=== PATIENT | male | born 1935 | race Caucasian/White ===

== ENCOUNTER → 2017-05-22 | Outpatient (CLI) | payer MEDICARE ==
[2016-03-31 11:11] VITALS: BMI 33.8
[~2017-05-22] MED LIST: ACET500T68 PO; AML5 PO; AMLO-1 PO; AMLO-98 PO; AMLO-99 PO; AMOX-559 PO; AMOX500T10 PO; ASCO1TAB PO; ASPI-719 PO; ASPI-816 PO; AZIT-1 PO; AZIT-18 PO; BP MED; CEF300 PO; CELE-1 PO; CELE100C79 PO; CIPR-245 PO; CIPR-344 PO; CLAR-13 PO; CLON-327 PO; CODE118S5 PO; DEXL60CA6 PO; ENA10 PO; ENAL20TA99 PO; FESO8PT PO; FIN5 PO; FINA5TAB67 PO; FLUT16SP19 NS; FURO-45 PO; GAB300; GAB300 PO; GABA-549 PO; HYDR-2966 PO; HYDR-3629 PO; HYDR-385 PO; HYDR-4308 PO; HYDR-6016 PO; INSU100C12 SQ; INSU100C14 SQ; INSU100I35 SQ; INSU100V24 SQ; INSU200I SUBQ; LANI SQ; LANI SUBQ; LIDO10VI16 INTRA-ART; LISI-362 PO; LISI-368 PO; LISI-374 PO; LISI20TA29 PO; LOR5 PO; LOR5/325 PO; Levofloxacin PO; MAGN400C PO; MECL12.5 PO; MELO-149 PO; METF-410 PO; METF500T4 PO; METXR500; MIRA50TA PO; MULT1CAP59 PO; NEED-653 SQ; NEOM10DR44 OT; OMEP-125 PO; PNEU0.5D3 IM; PRED-1 PO; PREG50CA48 PO; ROS10 PO; SIMV-44 PO; SIMV-49 PO; SOLI10TA8 PO; SPIR25TA78 PO; TAMS0.4C69 PO; TAMS0.4C70 PO; TRI40I IART; VIT C; [UNRECOGNIZED DRUG - CODE] PO; [UNRECOGNIZED DRUG - CODE] PO
== END ==
LOC: LAB 14:54
PROVIDERS: ATTEND Emergency Medicine
DX: E11.9 Type 2 diabetes mellitus without complications (principal)
CPT/HCPCS: 36415; 82310; 82374; 82435; 82565; 82947; 83036; 84132; 84295; 84520

== ENCOUNTER → 2017-06-06 | Outpatient (CLI) | payer MEDICARE ==
[2016-03-31 11:11] VITALS: BMI 33.8
--- NOTE | 2017-06-07 08:53 | RADIOLOGY IMAGING REPORT ---
FACILITY: [facility] - [place] PATIENT NAME: CLAUDIA HO : [id number] MR: [id number] V: [id number] EXAM DATE: ORDERING PHYSICIAN: HUANG KELLEY TECHNOLOGIST: Thuy Mendoza EXAMINATION:TWO-DIMENSIONAL ECHOCARDIOGRAPH REASON:AORTIC STENOSIS 2D Measurements (normal values in centimeters) LV endLV endRV endVent.LV PostAorticLeftPercent DiastolicSystolicDiastolicSeptumWallRootAtriumShortening (3.5-5.7)(0.9-2.6)(0.6-1.1)(0.6-1.1)(2.0-3.7)(1.9-4.0)(25-35%) [id number]% STROKE VOLUME: 39ml ESTIMATED EJECTION FRACTION:64% PARASTERNAL LONG AXIS: Overall left ventricular systolic function appears to be normal. There is mild concentric left ventricular thickening but no evidence for any outflow tract obstruction. The aortic valve appears to be stenotic. Color examination of the aortic valve reveals some aortic insufficiency. The left atrium appears to be severely enlarged. Right ventricle is mildly enlarged. Color examination of the mitral valve revealed a trace of mitral insufficiency present. PARASTERNAL SHORT AXIS: Aortic valve is not well seen but it is stenotic. There is some aortic insufficiency present. It probably is trileaflet in configuration although it is difficult to tell. The overall left ventricular function appears to be normal. No specific wall motion abnormalities are noted. Right ventricle appears to contract normally. APICAL FOUR AND TWO CHAMBER: Normal left ventricular ejection fraction. Left atrium is severely enlarged. The aortic valve was measured at 1.4cm2 with a mean pressure gradient across the valve of 26mm Hg & a dimensionless index of .4 indicating moderate aortic stenosis. Mitral valve area is measured within normal ranges at 2.65cm2. The tricuspid regurgitation Vmax measured 2.78m/sec. Estimated right atrial pressure is 3mm Hg. The left atrial volume is severely increased at 46.7ml/m2. Right atrial volume is measured within normal ranges at 7.9ml/m2. Mild concentric left ventricular thickening is noted with no evidence for any outflow tract obstruction. SUBCOSTAL VIEW: No pericardial effusion was noted. No atrioseptal or ventriculoseptal defects were appreciated. Doppler examination of the mitral valve in diastole does reveal the A wave > E wave. The aortic insufficiency pressure at half time is 521msec. OVERALL IMPRESSION: 1. Normal left ventricular ejection fraction of 64% with a mild decrease in diastolic function. 2. Borderline right ventricular enlargement, concentric left ventricular thickening with no evidence for any outflow tract obstruction. Left atrium is severely enlarged. The other chamber sizes are normal. 3. A probable trileaflet aortic valve with mild to moderate aortic stenosis with a valve area of 1.4cm2 with a mean pressure gradient across the valve of 26mm Hg. There is a mild to borderline moderate amount of aortic insufficiency. 4. A trace of pulmonic insufficiency, trace of mitral & a trace of tricuspid insufficiency. Estimated right ventricular systolic pressure is within normal ranges at 34mm Hg. Mild mitral annular calcification is also noted but no mitral stenosis is noted. Dictated by: Airam Fernandez M.D. on 06/06/2017 at 17:43 Transcribed by: PADDY on 06/07/2017 at 8:06 Approved by: Airam Fernandez M.D. on 06/07/2017 at 8:52 [facility]
== END ==
LOC: US 05-30 02:20
PROVIDERS: ATTEND Emergency Medicine
DX: I50.30 Unspecified diastolic (congestive) heart failure (principal); I51.7 Cardiomegaly; I35.2 Nonrheumatic aortic (valve) stenosis with insufficiency; I34.0 Nonrheumatic mitral (valve) insufficiency; I37.1 Nonrheumatic pulmonary valve insufficiency; I07.1 Rheumatic tricuspid insufficiency; I25.10 Atherosclerotic heart disease of native coronary artery without angina pectoris
CPT/HCPCS: 93306

== ENCOUNTER → 2017-11-17 | Outpatient (CLI) | payer MEDICARE ==
[2016-03-31 11:11] VITALS: BMI 33.8
[~2017-11-17] MED LIST changes: -ASPI-816 PO; +ASPI-870 PO; -METF-410 PO; +METF-411 PO; +OMEG-11 PO; +SPIR25TA80 PO
[2017-11-17 09:09] LABS: PLATELET COUNT, AUTOMATED 182 K/uL (150-450)
[2017-11-17 09:46] LABS: LDL CHOLESTEROL 28 mg/dl
== END ==
LOC: LAB 08:47
PROVIDERS: ATTEND Emergency Medicine
DX: Z12.5 Encounter for screening for malignant neoplasm of prostate (principal); E11.9 Type 2 diabetes mellitus without complications
CPT/HCPCS: 36415; 82040; 82247; 82310; 82374; 82435; 82465; 82565; 82947; 83036; 83718; 84075; 84132; 84153; 84155; 84295; 84450; 84460; 84478; 84520; 85025

== ENCOUNTER → 2017-12-26 | Outpatient (CLI) | payer MEDICARE ==
[2016-03-31 11:11] VITALS: BMI 33.8
[~2017-12-26] MED LIST changes: +AMLO-113 PO; -AMLO-99 PO; -METF-411 PO; +METF-450 PO; +VARI50KI IM
== END ==
LOC: LAB 10:00
PROVIDERS: ATTEND Urology
DX: Z12.5 Encounter for screening for malignant neoplasm of prostate (principal)
CPT/HCPCS: 36415; G0103; 84153

== ENCOUNTER 2018-05-11 14:27 | Emergency (ER) | payer MEDICARE ==
[2016-03-31 11:11] VITALS: Wt 90.7 kg
[~2018-05-11 14:27] MED LIST changes: -AMLO-113 PO; +AMLO-127 PO; -HYDR-4308 PO; +HYDR-654 PO; +SYRI-1525 MC
--- NOTE | 2018-05-11 14:34 | ER Report ---
History and Physical Time Seen By MD: 14:30 HPI/ROS CHIEF COMPLAINT: Possible left lower leg infection HISTORY OF PRESENT ILLNESS: Patient is an 83-year-old male who has a history of diabetes who presents emergency Department with concern about lower extremity infection. Approximately one week ago he was carrying a piece of thyroid in his garage and it slipped striking him in the leg and causing an abrasion. He had been treating himself at home with topical antibiotics and doing well, however today he noticed increasing redness streaking away from the wound. He denies any fevers or chills. Sugars have been fairly well-controlled last blood sugar reported as 124 mg/dL. Patient is unclear when last tetanus shot was given. Reports no other symptoms. REVIEW OF SYSTEMS: Respiratory: No cough, no dyspnea. Cardiovascular: No chest pain, no palpitations. Gastrointestinal: No vomiting, no abdominal pain. Musculoskeletal: No back pain. Allergies: Coded Allergies: shellfish derived (Verified Allergy, Severe, AIRWAY OBSTRUCTION, 05/11/18) tramadol (Verified Allergy, Mild, 05/11/18) Home Meds Active Scripts Cephalexin (KEFLEX) 500 Mg Capsule, 500 MG PO Q6H, #20 CAP 0 Refills TAKE ONE CAPSULE BY MOUTH EVERY SIX HOURS Prov:CATALINO BLOUNT MD 05/11/18 Hydrocodone Bit/Acetaminophen (NORCO 7.5-325 TABLET) 1 Each Tablet, 1 EACH PO TID, #90 TAB 0 Refills Prov:NICOL DAVIS DNP, CUT OFF SAW TENDER METAL-BC 04/30/18 Rosuvastatin Calcium (CRESTOR) 10 Mg Tab, 0.5 TAB PO QDAY, #45 TAB 3 Refills Prov:HUANG KELLEY MD 03/30/18 Amlodipine Besylate (AMLODIPINE BESYLATE) 10 Mg Tablet, 1 TAB PO QDAY, #90 TAB 3 Refills Prov:HUANG KELLEY MD 02/19/18 [place], Insulin Disposable (Bd Ultra-Fine Pen Needle) 1 Each Dis.needle, BOX SQ TID, #3 4 Refills Prov:HUNAG KELLEY MD 02/14/18 Syringe & Needle,Insulin,1 Ml (INSULIN SYRINGE) 1 Each Disp.syrin, EACH MC DAILY, #3 Prov:HUANG KELLEY MD 01/19/18 Clonidine Hcl (CLONIDINE HCL) 0.1 Mg Tablet, 0.1 MG PO BID, #180 TAB 3 Refills Prov:HUANG KELLEY MD 01/19/18 Dexlansoprazole (DEXILANT) 60 Mg , 1 MG PO QDAY, #90 CAP 3 Refills Prov:HUANG KELLEY MD 01/19/18 Metformin Hcl (METFORMIN HCL) 500 Mg Tablet, 1 TAB PO HS, #90 TAB 3 Refills TAKE ONE TABLET BY MOUTH ONCE A DAY WITH FOOD Prov:HUANG KELLEY MD 01/05/18 Pregabalin (LYRICA) 50 Mg Capsule, 50 MG PO DAILY, #90 CAPSULE 3 Refills Prov:HUANG KELLEY MD 01/04/18 Insulin Glargine (LANTUS) 100 Unit/Ml Soln, 25 UNIT SUBQ HS, #3 VIAL 3 Refills Prov:HUANG KELLEY MD 11/20/17 Insulin Lispro 200 UN/ML PEN (Humalog Kwikpen) 200 Unit/1 Ml Insuln.pen, 6 UNITS SUBQ TID, #3 DIS.SYR 4 Refills Take 6 units subcutaneously three times a day. Prov:HUANG KELLEY MD 08/24/17 Lisinopril (LISINOPRIL) 40 Mg Tablet, 1 TAB PO QDAY, #90 TAB 4 Refills Prov:HUANG KELLEY MD 07/28/17 Hydrochlorothiazide (HYDROCHLOROTHIAZIDE) 25 Mg Tablet, 1 TAB PO QDAY, #90 TAB 4 Refills Prov:HUANG KELLEY MD 05/22/17 Fluticasone Prop 50 Mcg Ns (FLONASE 50 MCG NS) 16 Gm [place].susp, 1 SPRAY NS BID, #1 CON 12 Refills Prov:HUANG KELLEY MD 09/07/16 Meclizine Hcl (MECLIZINE HCL) 12.5 Mg Tablet, 12.5 MG PO TID PRN for DIZZINESS, #45 TAB Prov:HUANG KELLEY MD 10/20/15 Finasteride (FINASTERIDE) 5 Mg Tablet, 5 MG PO QDAY, #90 TAB 3 Refills Prov:HUANG KELLEY MD 04/29/15 Tamsulosin Hcl (TAMSULOSIN HCL) 0.4 Mg Cap.er.24h, 1 CAP PO DAILY, #90 CAP 3 Refills Prov:CHIDI SCOTT MD 01/31/14 Aspirin (Children's Aspirin) 81 Mg Tab.chew, 1 TAB PO DAILY, #100 4 Refills Prov:CHIDI SCOTT MD 11/19/13 Reported Medications [place]-3 Fatty Acids/Fish Oil (FISH OIL 1,000 MG CAPSULE) 1 Each Capsule, 1 EACH PO DAILY, CAPSULE 11/20/17 Solifenacin Succinate (VESICARE) 10 Mg Tablet, 1 TAB PO DAILY 09/19/16 Mirabegron (MYRBETRIQ) 50 Mg Tab.er.24h, 1 TAB PO DAILY 09/19/16 Multivitamins (Multivitamin) 1 Each Capsule, 1 EACH PO DAILY 07/22/11 Past Medical/Surgical History Insulin-dependent type II diabetes, hypertension Hx Smoking: No Smoking Status: Never Smoker Exposure to Second Hand Smoke?: No Hx Substance Use Disorder: No Hx Alcohol Use: Yes Constitutional Vital Sign - Last 24 Hours 05/11/18 14:30 Temp 96.7 Pulse 86 Resp 16 B/P (MAP) 172/90 Pulse Ox 90 O2 Delivery Room Air Physical Exam General appearance: Alert no distress. Respiratory: Chest is non tender, lungs are clear to auscultation. Cardiac: Regular rate and rhythm [ ] Examination of the left lower extremity reveals a quarter-sized area of abrasion with some granulation tissue and then an area of edema that extends approximately 10-15 cm above the initial abrasion site. There is no area of fluctuance or area of abscess. Medical Decision Making Data Points Result Diagram: 05/11/18 1440 05/11/18 1440 Laboratory Hematology Test 05/11/18 14:40 Red Blood Count 5.13 M/uL (4.00-5.60) Mean Corpuscular Volume 88.1 fL (80.0-96.0) Mean Corpuscular Hemoglobin 29.9 pg (26.0-33.0) Mean Corpuscular Hemoglobin Concent 33.9 g/dL (32.0-36.0) Red Cell Distribution Width 13.9 % (11.5-14.5) Mean Platelet Volume 9.0 fL (7.2-11.1) Neutrophils (%) (Auto) 61.8 % (39.4-72.5) Lymphocytes (%) (Auto) 27.4 % (17.6-49.6) Monocytes (%) (Auto) 5.0 % (4.1-12.4) Eosinophils (%) (Auto) 5.2 % (0.4-6.7) Basophils (%) (Auto) 0.6 % (0.3-1.4) Nucleated RBC Relative Count (auto) 0.1 /100WBC Neutrophils # (Auto) 6.5 K/uL (2.0-7.4) Lymphocytes # (Auto) 2.9 K/uL (1.3-3.6) Monocytes # (Auto) 0.5 K/uL (0.3-1.0) Eosinophils # (Auto) 0.5 K/uL (0.0-0.5) Basophils # (Auto) 0.1 K/uL (0.0-0.1) Nucleated RBC Absolute Count (auto) 0.01 K/uL Sodium Level 137 mmol/L (137-145) Potassium Level 3.5 mmol/L (3.5-5.0) Chloride Level 104 mmol/L (98-107) Carbon Dioxide Level 29 mmol/L (22-30) Blood Urea Nitrogen 15 mg/dl (9-21) Creatinine 0.70 mg/dl (0.66-1.25) Glomerular Filtration Rate Calc > 60.0 Random Glucose 195 mg/dl (75-110) Calcium Level 9.0 mg/dl (8.4-10.2) Chemistry Test 05/11/18 14:40 White Blood Count 10.5 k/uL (4.5-11.0) Red Blood Count 5.13 M/uL (4.00-5.60) Hemoglobin 15.3 g/dL (14.0-18.0) Hematocrit 45.2 % (42.0-52.0) Mean Corpuscular Volume 88.1 fL (80.0-96.0) Mean Corpuscular Hemoglobin 29.9 pg (26.0-33.0) Mean Corpuscular Hemoglobin Concent 33.9 g/dL (32.0-36.0) Red Cell Distribution Width 13.9 % (11.5-14.5) Platelet Count 201 K/uL (150-450) Mean Platelet Volume 9.0 fL (7.2-11.1) Neutrophils (%) (Auto) 61.8 % (39.4-72.5) Lymphocytes (%) (Auto) 27.4 % (17.6-49.6) Monocytes (%) (Auto) 5.0 % (4.1-12.4) Eosinophils (%) (Auto) 5.2 % (0.4-6.7) Basophils (%) (Auto) 0.6 % (0.3-1.4) Nucleated RBC Relative Count (auto) 0.1 /100WBC Neutrophils # (Auto) 6.5 K/uL (2.0-7.4) Lymphocytes # (Auto) 2.9 K/uL (1.3-3.6) Monocytes # (Auto) 0.5 K/uL (0.3-1.0) Eosinophils # (Auto) 0.5 K/uL (0.0-0.5) Basophils # (Auto) 0.1 K/uL (0.0-0.1) Nucleated RBC Absolute Count (auto) 0.01 K/uL Glomerular Filtration Rate Calc > 60.0 Calcium Level 9.0 mg/dl (8.4-10.2) ED Course/Re-evaluation Clinical Indication for ER IV: IV Access ED Course 05/11/2018 2:43:25 pm when at this time will be placed to Papito injection and also gave IV Rocephin and check CBC and BMP Decision to Disposition Date: May 11, 2018 Decision to Disposition Time: 15:08 Depart Departure Latest Vital Signs Vital Signs Date Time Temp Pulse Resp B/P (MAP) Pulse Ox O2 Delivery O2 Flow Rate FiO2 05/11/18 14:30 96.7 86 16 172/90 90 Room Air Impression: Primary Impression: Cellulitis Condition: Improved Disposition: HOME OR SELF-CARE Referrals: HUANG KELLEY MD (PCP) IN 48 hours if symptoms do not improve New Scripts Cephalexin (KEFLEX) 500 Mg Capsule 500 MG PO Q6H, #20 CAP 0 Refills TAKE ONE CAPSULE BY MOUTH EVERY SIX HOURS Prov: CATALINO BLOUNT MD 05/11/18 Patient Instructions: Cellulitis (ED) Additional Instructions: Return to the emergency department if your symptoms worsen Problem Qualifiers Primary Impression: Cellulitis Site of cellulitis: extremity Site of cellulitis of extremity: lower extremity Laterality: right Qualified Codes: L03.115 - Cellulitis of right lower limb CATALINO BLOUNT MD May 11, 2018 14:34
[2018-05-11] MEDS ORDERED: DIPHTH/TETANUS/ACEL. PERTUSSIS IM ONLY ONE (14:35)
[2018-05-11] MEDS ORDERED: cefTRIAXone 1 GM VIAL IVP ONE (14:35)
[2018-05-11 14:50] LABS: PLATELET COUNT, AUTOMATED 201 K/uL (150-450)
[2018-05-11] MEDS ORDERED: NS(*) 0.9% 10 ML VIAL 10 ML ONE (14:51)
[2018-05-11] MEDS ORDERED: CEPH-13 PO (14:52)
[2018-05-11 15:00] VITALS: BP 137/68
== END 2018-05-11 15:25 | disposition home or self-care (01) ==
LOC: ER 14:33
DX: L03.115 Cellulitis of right lower limb (principal); E11.9 Type 2 diabetes mellitus without complications
CPT/HCPCS: 85025; 90471; 90715; 96374; 99284; J0696; 82310; 82374; 82435; 82565; 82947; 84132; 84295; 84520

== ENCOUNTER 2018-05-15 13:52 | Emergency (ER) | payer MEDICARE ==
[2016-03-31 11:11] VITALS: Wt 90.9 kg
[~2018-05-15 13:52] MED LIST changes: +CEPH-13 PO
--- NOTE | 2018-05-15 14:02 | ER Report ---
History and Physical Time Seen By : 14:02 HPI/ROS CHIEF COMPLAINT: Left shoulder pain following IM injection HISTORY OF PRESENT ILLNESS: 83-year-old male patient presents to the emergency room with complaint of left shoulder pain following an IM injection on Monday. Patient states that he was seen for a wound on his gann. He was getting firewood and scraped his gann. They did watch him for approximately one week prior to coming in to the emergency room. They brought him in and he was evaluated, started on antibiotics and had the wound dressed. Patient started having some discomfort on Monday and that has worsened. They deny any fevers, chills, nausea, vomiting or diarrhea. They state the patient has been taking Keflex as prescribed. He does have a past medical history of diabetes. Allergies: Coded Allergies: shellfish derived (Verified Allergy, Severe, AIRWAY OBSTRUCTION, 05/11/18) tramadol (Verified Allergy, Mild, 05/11/18) Home Meds Active Scripts Clindamycin Hcl (CLINDAMYCIN HCL) 300 Mg Capsule, 300 MG PO Q6H, #40 CAPSULE Prov:MITZI SELF IMPLEMENTATION ANALYST 05/15/18 Cephalexin (KEFLEX) 500 Mg Capsule, 500 MG PO Q6H, #20 CAP 0 Refills TAKE ONE CAPSULE BY MOUTH EVERY SIX HOURS Prov:CATALINO BLOUNT MD 05/11/18 Hydrocodone Bit/Acetaminophen (NORCO 7.5-325 TABLET) 1 Each Tablet, 1 EACH PO TID, #90 TAB 0 Refills Prov:NICOL DAVIS DNP, IMPLEMENTATION ANALYST-BC 04/30/18 Rosuvastatin Calcium (CRESTOR) 10 Mg Tab, 0.5 TAB PO QDAY, #45 TAB 3 Refills Prov:HUANG KELLEY MD 03/30/18 Amlodipine Besylate (AMLODIPINE BESYLATE) 10 Mg Tablet, 1 TAB PO QDAY, #90 TAB 3 Refills Prov:HUANG KELLEY MD 02/19/18 [place], Insulin Disposable (Bd Ultra-Fine Pen Needle) 1 Each Dis.needle, BOX SQ TID, #3 4 Refills Prov:HUANG KELLEY MD 02/14/18 Syringe & Needle,Insulin,1 Ml (INSULIN SYRINGE) 1 Each Disp.syrin, EACH MC DAILY, #3 Prov:HUANG KELLEY MD 01/19/18 Clonidine Hcl (CLONIDINE HCL) 0.1 Mg Tablet, 0.1 MG PO BID, #180 TAB 3 Refills Prov:HUANG KELLEY MD 01/19/18 Dexlansoprazole (DEXILANT) 60 Mg , 1 MG PO QDAY, #90 CAP 3 Refills Prov:HUANG KELLEY MD 01/19/18 Metformin Hcl (METFORMIN HCL) 500 Mg Tablet, 1 TAB PO HS, #90 TAB 3 Refills TAKE ONE TABLET BY MOUTH ONCE A DAY WITH FOOD Prov:HUANG KELLEY MD 01/05/18 Pregabalin (LYRICA) 50 Mg Capsule, 50 MG PO DAILY, #90 CAPSULE 3 Refills Prov:HUANG KELLEY MD 01/04/18 Insulin Glargine (LANTUS) 100 Unit/Ml Soln, 25 UNIT SUBQ HS, #3 VIAL 3 Refills Prov:HUANG KELLEY MD 11/20/17 Insulin Lispro 200 UN/ML PEN (Humalog Kwikpen) 200 Unit/1 Ml Insuln.pen, 6 UNITS SUBQ TID, #3 DIS.SYR 4 Refills Take 6 units subcutaneously three times a day. Prov:HUANG KELLEY MD 08/24/17 Lisinopril (LISINOPRIL) 40 Mg Tablet, 1 TAB PO QDAY, #90 TAB 4 Refills Prov:HUANG KELLEY MD 07/28/17 Hydrochlorothiazide (HYDROCHLOROTHIAZIDE) 25 Mg Tablet, 1 TAB PO QDAY, #90 TAB 4 Refills Prov:HUANG KELLEY MD 05/22/17 Fluticasone Prop 50 Mcg Ns (FLONASE 50 MCG NS) 16 Gm [place].susp, 1 SPRAY NS BID, #1 CON 12 Refills Prov:HUANG KELLEY MD 09/07/16 Meclizine Hcl (MECLIZINE HCL) 12.5 Mg Tablet, 12.5 MG PO TID PRN for DIZZINESS, #45 TAB Prov:HUANG KELLEY MD 10/20/15 Finasteride (FINASTERIDE) 5 Mg Tablet, 5 MG PO QDAY, #90 TAB 3 Refills Prov:HUANG KELLEY MD 04/29/15 Tamsulosin Hcl (TAMSULOSIN HCL) 0.4 Mg Cap.er.24h, 1 CAP PO DAILY, #90 CAP 3 Refills Prov:CHIDI SCOTT MD 01/31/14 Aspirin (Children's Aspirin) 81 Mg Tab.chew, 1 TAB PO DAILY, #100 4 Refills Prov:CHIDI SCOTT MD 11/19/13 Reported Medications [place]-3 Fatty Acids/Fish Oil (FISH OIL 1,000 MG CAPSULE) 1 Each Capsule, 1 EACH PO DAILY, CAPSULE 11/20/17 Solifenacin Succinate (VESICARE) 10 Mg Tablet, 1 TAB PO DAILY 09/19/16 Mirabegron (MYRBETRIQ) 50 Mg Tab.er.24h, 1 TAB PO DAILY 09/19/16 Multivitamins (Multivitamin) 1 Each Capsule, 1 EACH PO DAILY 07/22/11 Past Medical/Surgical History Patient has a past medical history of CVA, hypertension, hyperlipidemia, MD, pneumonia, reflux, cholecystitis, kidney stones, BPH, arthritis, fractures, back pain, diabetes, alcohol use. Patient has a surgical history of cholecystectomy, TURP, left hand surgery, back surgery, sinus surgery, cataract surgery. Patient has a family medical history of cancer, diabetes. Reviewed Nurses Notes: Yes Hx Smoking: No Smoking Status: Never Smoker Exposure to Second Hand Smoke?: No Hx Substance Use Disorder: No Hx Alcohol Use: Yes Constitutional Vital Sign - Last 24 Hours 05/15/18 14:07 Temp 97.5 Pulse 96 Resp 16 B/P (MAP) 168/91 Pulse Ox 88 O2 Delivery Room Air Physical Exam General appearance: Alert no distress. Respiratory: Chest is non tender, lungs are clear to auscultation. Cardiac: Regular rate and rhythm. Skin: The left shoulder is slightly swollen, it is warm to the touch. Does have some erythema around the injection site. Patient does have a small, nickel size wound on anterior left gann. There is no obvious erythema around it. There is no drainage. DIFFERENTIAL DIAGNOSIS: After history and physical exam differential diagnosis was considered for cellulitis. Medical Decision Making ED Course/Re-evaluation ED Course Patient was admitted to an exam room, history and physical were obtained. Differential diagnoses were considered. On examination lungs are clear, heart is regular, the left shoulder is warm to the touch, he has some erythema around the injection site. Patient does have wound to the anterior left gann. His approximate size of a nickel. There is no obvious drainage noted. I did change the dressing on that, replaced it with bacitracin, a Telfa pad, wrapped it with Kerlix and tape. Patient tolerated procedure well. I believe the patient needs to have different antibiotics, as he has been on Keflex and has had the cellulitis developing the shoulder. Due to him being diabetic we will go ahead and switch him to clindamycin. I would like him follow-up with his primary care provider or Monday this week. I discussed this with the patient and his and they verbalized understanding and agreement with plan. Decision to Disposition Date: May 15, 2018 Decision to Disposition Time: 14:28 Depart Departure Latest Vital Signs Vital Signs Date Time Temp Pulse Resp B/P (MAP) Pulse Ox O2 Delivery O2 Flow Rate FiO2 05/15/18 14:07 97.5 96 16 168/91 88 Room Air Impression: Primary Impression: Cellulitis Condition: Improved Disposition: HOME OR SELF-CARE Referrals: HUANG KELLEY MD (PCP) New Scripts Clindamycin Hcl (CLINDAMYCIN HCL) 300 Mg Capsule 300 MG PO Q6H, #40 CAPSULE Prov: MITZI SELF 05/15/18 Patient Instructions: Cellulitis (ED) Additional Instructions: Increase fluid intake. Get plenty of rest. Limit activity by pain. Return to the ER if condition worsens. Follow up with your primary care provider in 3-4 days. Continue with your current medications. Problem Qualifiers Primary Impression: Cellulitis Site of cellulitis: extremity Site of cellulitis of extremity: upper extremity Laterality: left Qualified Codes: L03.114 - Cellulitis of left upper limb MITZI SELF May 15, 2018 14:02
[2018-05-15 14:07] VITALS: BP 168/91
[2018-05-15] MEDS ORDERED: CLIN300C99 PO (14:27)
== END 2018-05-15 14:38 | disposition home or self-care (01) ==
LOC: ER 14:04
DX: L03.114 Cellulitis of left upper limb (principal); S80.922A Unspecified superficial injury of left lower leg, initial encounter
CPT/HCPCS: 99282

== ENCOUNTER → 2018-05-18 | Outpatient (CLI) | payer MEDICARE ==
[2016-03-31 11:11] VITALS: BMI 33.8
[~2018-05-18] MED LIST changes: +CLIN300C99 PO
[2018-05-18 09:47] LABS: PLATELET COUNT, AUTOMATED 197 K/uL (150-450)
== END ==
LOC: LAB 09:17
PROVIDERS: ATTEND Emergency Medicine
DX: E11.9 Type 2 diabetes mellitus without complications (principal); R21 Rash and other nonspecific skin eruption
CPT/HCPCS: 36415; 82465; 83036; 83718; 84478; 85025; 86140

== ENCOUNTER → 2018-07-03 | Outpatient (CLI) | payer MEDICARE ==
[2016-03-31 11:11] VITALS: BMI 33.8
[~2018-07-03] MED LIST changes: +POTA20TA94 PO; -ROS10 PO; +ROSU10TA PO; +ROSU5TAB3 PO
[2018-07-03 13:18] LABS: PLATELET COUNT, AUTOMATED 199 K/uL (150-450)
== END ==
LOC: LAB 13:05
PROVIDERS: ATTEND Emergency Medicine
DX: D64.9 Anemia, unspecified (principal); I10 Essential (primary) hypertension
CPT/HCPCS: 36415; 82310; 82374; 82435; 82565; 82607; 82746; 82947; 83540; 83550; 84132; 84295; 84520; 85025

== ENCOUNTER → 2018-07-11 | Outpatient (CLI) | payer MEDICARE ==
[2016-03-31 11:11] VITALS: BMI 33.8
[~2018-07-11] MED LIST changes: +LOSA100T75 PO
--- NOTE | 2018-07-11 16:04 | RADIOLOGY IMAGING REPORT ---
FACILITY: [facility] [place]IENT NAME: Ismael Warner : 1935 MR: [id number] V: [id number] EXAM DATE: ORDERING PHYSICIAN: HUANG KELLEY TECHNOLOGIST: Location: [facility] Patient: Ismael Warner : 1935 Visit/Account:[id number] Date of Sevice: 07/11/2018 EXAMINATION: MRI brain without IV contrast MRI brain with IV contrast HISTORY: Dizziness. COMPARISON: Brain MRI report from 07/05/2007. CT head from 12/19/2016. TECHNIQUE: Multi-planar, multi-sequence brain MRI was performed before and after IV gadolinium. CONTRAST: 15 mL of IV MultiHance gadolinium. FINDINGS: The exam is mildly limited by patient motion artifact. Brain volume: Mild generalized atrophy with associated concordant prominence of the ventricular syst em. Sagittal midline structures: Normal. Ventricles: Normal. Acute ischemic changes: There is no diffusion restriction present to suggest acute ischemia. Hemorrhage: No acute hemorrhage or hemosiderin staining. Masses/edema: There is a T1 and T2 isointense extra-axial mass in the right frontotemporal region, p artly over the sphenoid wing. The lesion measures 2.1 x 1.5 cm (image 13 series 13) by 1.8 cm (image 9 series 14). No mass effect or edema in the adjacent brain. Enhancement: Homogeneous enhancement of the extra-axial mass described above. Thin enhancing adjacen t dural tail. Frausto-white: Negative. White matter: A few T2/FLAIR hyperintensities in the deep white matter bilaterally. Vessels: Normal. Extra-axial: See description of extra-axial mass above. Calvarium/scalp: Negative. Skull base: Negative. Visualized sinuses/orbits: Mild patchy mucosal thickening in the paranasal sinuses is worst in the r ight maxillary sinus. There is mild nasal septal deviation to the left. Previous lens surgery bilat erally. Visualized upper neck: Negative. IMPRESSION: 1. No acute infarct or hemorrhage. 2. 2.1 x 1.5 x 1.8 cm right frontotemporal extra-axial mass is most likely a benign meningioma. The re may have been a lesion in this location on previous CT, but it is difficult to visualize without c ontrast. No edema in the adjacent brain. 3. Minimal nonspecific white matter disease is suspicious for chronic small vessel ischemia. Report Dictated By: Roxana Zamora MD at 07/11/2018 3:54 PM Report E-Signed By: Roxana Zamora MD at 07/11/2018 4:00 PM [id number]
== END ==
LOC: MRI 00:45
PROVIDERS: ATTEND Emergency Medicine
DX: G31.1 Senile degeneration of brain, not elsewhere classified (principal); J34.2 Deviated nasal septum; J32.8 Other chronic sinusitis; Z98.890 Other specified postprocedural states
CPT/HCPCS: 70553; A9577

== ENCOUNTER → 2018-08-02 | Outpatient (CLI) | payer MEDICARE ==
[2016-03-31 11:11] VITALS: BMI 33.8
== END ==
LOC: LAB 15:23
PROVIDERS: ATTEND Emergency Medicine
DX: M79.10 Myalgia, unspecified site (principal); I10 Essential (primary) hypertension
CPT/HCPCS: 36415; 82310; 82374; 82435; 82550; 82565; 82947; 84132; 84295; 84520

== ENCOUNTER → 2018-08-11 | Outpatient (CLI) | payer MEDICARE ==
[2016-03-31 11:11] VITALS: BMI 33.8
== END ==
LOC: RESP 19:25
PROVIDERS: ATTEND Emergency Medicine
DX: G47.33 Obstructive sleep apnea (adult) (pediatric) (principal); G47.61 Periodic limb movement disorder; G47.36 Sleep related hypoventilation in conditions classified elsewhere

== ENCOUNTER 2018-09-03 12:23 | Emergency (ER) | payer MEDICARE ==
[2016-03-31 11:11] VITALS: Wt 93.4 kg
--- NOTE | 2018-09-03 12:34 | ER Report ---
History and Physical Time Seen By MD: 12:34 HPI/ROS CHIEF COMPLAINT: Leg pain 1 month HISTORY OF PRESENT ILLNESS: 83-year-old male patient presents to emergency room with complaint of leg pain 1 month. Patient states that he has worsening pain with ambulation. He states that he has pain all the time. He denies having any shortness of breath, any chest pain. Patient states he has noticed swelling to bilateral lower extremities. He has not had any changes in his medication. His is very concerned about his diabetes as well as his leg pain. She states she's only known about it for approximately one month. He states that he has seen his primary care provider, who did not seem to be interested in the leg pain. He was told to wear compression hose. Patient denies any injury to the lower legs. REVIEW OF SYSTEMS: Respiratory: No cough, no dyspnea. Cardiovascular: No chest pain, no palpitations. Gastrointestinal: No vomiting, no abdominal pain. Musculoskeletal: As noted above Allergies: Coded Allergies: shellfish derived (Verified Allergy, Severe, AIRWAY OBSTRUCTION, 09/03/18) tramadol (Verified Allergy, Mild, 09/03/18) Home Meds Active Scripts Gabapentin (GABAPENTIN) 300 Mg Capsule, 300 MG PO DIRECTED, #90 CAPSULE Take 1 tab daily x 3 days, then take 1 tab twice a day x 3 days, then three times a day. Prov:MITZI SELF 09/03/18 Hydrocodone Bit/Acetaminophen (NORCO 7.5-325 TABLET) 1 Each Tablet, 1 EACH PO TID, #90 TAB 0 Refills Prov:HUANG KELLEY MD 08/30/18 Losartan Potassium (LOSARTAN POTASSIUM) 100 Mg Tablet, 100 MG PO QDAY, #90 TAB 3 Refills Prov:HUANG KELLEY MD 08/03/18 Potassium Chloride (POTASSIUM CHLORIDE) 20 Meq Tab.er.prt, 40 MEQ PO QDAY, #60 TAB 0 Refills Prov:HUANG KELLEY MD 08/02/18 Clonidine Hcl (CLONIDINE HCL) 0.1 Mg Tablet, 2 TAB PO BID, #180 TAB 3 Refills Prov:HUANG KELLEY MD 08/02/18 Hydrochlorothiazide (HYDROCHLOROTHIAZIDE) 25 Mg Tablet, 2 TAB PO QDAY, #135 TAB 3 Refills Prov:HUANG KELLEY MD 07/03/18 Meclizine Hcl (MECLIZINE HCL) 12.5 Mg Tablet, 12.5 MG PO TID PRN for DIZZINESS, #90 TAB 5 Refills Prov:HUANG KELLEY MD 07/03/18 Insulin Lispro 200 UN/ML PEN (Humalog Kwikpen) 200 Unit/1 Ml Insuln.pen, 6 UNITS SUBQ TID, #3 DIS.SYR 3 Refills Take 6 units subcutaneously three times a day. Prov:HUANG KELLEY MD 06/22/18 Insulin Glargine (LANTUS) 100 Unit/Ml Soln, 25 UNIT SUBQ HS, #3 VIAL 3 Refills Prov:HUANG KELLEY MD 05/31/18 Rosuvastatin Calcium (Rosuvastatin Calcium) 5 Mg Tablet, 1 TAB PO DAILY, #90 TAB 3 Refills Prov:HUANG KELLEY MD 05/28/18 Amlodipine Besylate (AMLODIPINE BESYLATE) 10 Mg Tablet, 1 TAB PO QDAY, #90 TAB 3 Refills Prov:HUANG KELLEY MD 02/19/18 [place], Insulin Disposable (Bd Ultra-Fine Pen Needle) 1 Each Dis.needle, BOX SQ TID, #3 4 Refills Prov:HUANG KELLEY MD 02/14/18 Syringe & Needle,Insulin,1 Ml (INSULIN SYRINGE) 1 Each Disp.syrin, EACH MC DAILY, #3 Prov:HUANG KELLEY MD 01/19/18 Dexlansoprazole (DEXILANT) 60 Mg Cap., 1 MG PO QDAY, #90 CAP 3 Refills Prov:HUANG KELLEY MD 01/19/18 Metformin Hcl (METFORMIN HCL) 500 Mg Tablet, 1 TAB PO HS, #90 TAB 3 Refills TAKE ONE TABLET BY MOUTH ONCE A DAY WITH FOOD Prov:HUANG KELLEY MD 01/05/18 Pregabalin (LYRICA) 50 Mg Capsule, 50 MG PO DAILY, #90 CAPSULE 3 Refills Prov:HUANG KELLEY MD 01/04/18 Fluticasone Prop 50 Mcg Ns (FLONASE 50 MCG NS) 16 Gm [place].susp, 1 SPRAY NS BID, #1 CON 12 Refills Prov:HUANG KELLEY MD 09/07/16 Finasteride (FINASTERIDE) 5 Mg Tablet, 5 MG PO QDAY, #90 TAB 3 Refills Prov:HUANG KELLEY MD 04/29/15 Tamsulosin Hcl (TAMSULOSIN HCL) 0.4 Mg Cap.er.24h, 1 CAP PO DAILY, #90 CAP 3 Refills Prov:CHIDI SCOTT MD 01/31/14 Aspirin (Children's Aspirin) 81 Mg Tab.chew, 1 TAB PO DAILY, #100 4 Refills Prov:CHIDI SCOTT MD 11/19/13 Reported Medications [place]-3 Fatty Acids/Fish Oil (FISH OIL 1,000 MG CAPSULE) 1 Each Capsule, 1 EACH PO DAILY, CAPSULE 11/20/17 Solifenacin Succinate (VESICARE) 10 Mg Tablet, 1 TAB PO DAILY 09/19/16 Mirabegron (MYRBETRIQ) 50 Mg Tab.er.24h, 1 TAB PO DAILY 09/19/16 Multivitamins (Multivitamin) 1 Each Capsule, 1 EACH PO DAILY 07/22/11 Past Medical/Surgical History Patient has a past medical history of CVA, hypertension, hyperlipidemia, [place], pneumonia, constipation, cholecystitis, kidney stones, BPH, arthritis, fractures, back pain, diabetes, alcohol use. Patient has a surgical history of cataract surgery, sinus surgery, back surgery, left hand surgery, TURP, cholecystectomy. Patient has a family medical history of cancer, diabetes. Reviewed Nurses Notes: Yes Hx Smoking: No Smoking Status: Never Smoker Exposure to Second Hand Smoke?: No Hx Substance Use Disorder: No Hx Alcohol Use: Yes Constitutional Vital Sign - Last 24 Hours 09/03/18 09/03/18 09/03/18 09/03/18 12:29 12:30 12:59 13:00 Temp 98.5 Pulse 99 ??? 91 Resp 22 9 B/P (MAP) 183/94 183/94 (123) 190/95 (126) Pulse Ox 86 94 O2 Delivery Room Air 09/03/18 09/03/18 15:00 15:17 Pulse 85 Resp 12 B/P (MAP) 174/99 (124) Pulse Ox 92 Physical Exam General Appearance: The patient is alert, has no immediate need for airway protection and no current signs of toxicity. Respiratory: Chest is non tender, lungs are clear to auscultation. Cardiac: regular rate and rhythm Gastrointestinal: Abdomen is soft and tender in left lower quadrant, no masses, bowel sounds normal. Musculoskeletal: Neck: Neck is supple and non tender. Extremities have full range of motion and are non tender. Patient does have edema, 1+. Patient has what appears to be some venous insufficiency. Skin: No rashes or lesions. DIFFERENTIAL DIAGNOSIS: After history and physical exam differential diagnosis was considered for development of neuropathy, gastroenteritis, constipation, congestive heart failure. Medical Decision Making Data Points Result Diagram: 09/03/18 1236 09/03/18 1236 Laboratory Hematology Test 09/03/18 12:36 09/03/18 12:55 Red Blood Count 5.35 M/uL (4.00-5.60) Mean Corpuscular Volume 88.1 fL (80.0-96.0) Mean Corpuscular Hemoglobin 29.4 pg (26.0-33.0) Mean Corpuscular Hemoglobin Concent 33.3 g/dL (32.0-36.0) Red Cell Distribution Width 13.9 % (11.5-14.5) Mean Platelet Volume 8.5 fL (7.2-11.1) Neutrophils (%) (Auto) 60.9 % (39.4-72.5) Lymphocytes (%) (Auto) 30.9 % (17.6-49.6) Monocytes (%) (Auto) 5.6 % (4.1-12.4) Eosinophils (%) (Auto) 2.0 % (0.4-6.7) Basophils (%) (Auto) 0.6 % (0.3-1.4) Nucleated RBC Relative Count (auto) 0.0 /100WBC Neutrophils # (Auto) 6.2 K/uL (2.0-7.4) Lymphocytes # (Auto) 3.2 K/uL (1.3-3.6) Monocytes # (Auto) 0.6 K/uL (0.3-1.0) Eosinophils # (Auto) 0.2 K/uL (0.0-0.5) Basophils # (Auto) 0.1 K/uL (0.0-0.1) Nucleated RBC Absolute Count (auto) 0.00 K/uL Sodium Level 139 mmol/L (137-145) Potassium Level 3.4 mmol/L (3.5-5.0) Chloride Level 100 mmol/L (98-107) Carbon Dioxide Level 29 mmol/L (22-30) Blood Urea Nitrogen 15 mg/dl (9-21) Creatinine 0.80 mg/dl (0.66-1.25) Glomerular Filtration Rate Calc > 60.0 Random Glucose 232 mg/dl (75-110) Calcium Level 9.1 mg/dl (8.4-10.2) Total Bilirubin 0.8 mg/dl (0.2-1.3) Aspartate Amino Transf (AST/SGOT) 46 U/L (0-35) Alanine Aminotransferase (ALT/SGPT) 48 U/L (0-56) Alkaline Phosphatase 123 U/L (0-126) Troponin I < 0.012 ng/ml B-Type Natriuretic Peptide 162 pg/ml (0-100) Total Protein 7.2 g/dl (6.3-8.2) Albumin 4.3 g/dl (3.5-5.0) Urine Color Straw Urine Clarity Clear Urine pH 7.0 pH (4.8-9.5) Urine Specific [place] 1.006 Urine Protein 30 mg/dL (NEGATIVE) Urine Glucose (UA) 500 mg/dL (NEGATIVE) Urine Ketones Negative mg/dL (NEGATIVE) Urine Blood Negative (NEGATIVE) Urine Nitrite Negative (NEGATIVE) Urine Bilirubin Negative (NEGATIVE) Urine Urobilinogen Negative mg/dL (0.2-1.9) Urine Leukocyte Esterase Negative (NEGATIVE) Urine RBC <1 /HPF (0-2/HPF) Urine WBC <1 /HPF (0-5/HPF) Urine Squamous Epithelial Cells Few /LPF (</=FEW) Urine Bacteria Negative /HPF (NONE-FEW) Urine Mucus None /HPF (NONE-FEW) Chemistry Test 09/03/18 12:36 09/03/18 12:55 White Blood Count 10.2 k/uL (4.5-11.0) Red Blood Count 5.35 M/uL (4.00-5.60) Hemoglobin 15.7 g/dL (14.0-18.0) Hematocrit 47.1 % (42.0-52.0) Mean Corpuscular Volume 88.1 fL (80.0-96.0) Mean Corpuscular Hemoglobin 29.4 pg (26.0-33.0) Mean Corpuscular Hemoglobin Concent 33.3 g/dL (32.0-36.0) Red Cell Distribution Width 13.9 % (11.5-14.5) Platelet Count 193 K/uL (150-450) Mean Platelet Volume 8.5 fL (7.2-11.1) Neutrophils (%) (Auto) 60.9 % (39.4-72.5) Lymphocytes (%) (Auto) 30.9 % (17.6-49.6) Monocytes (%) (Auto) 5.6 % (4.1-12.4) Eosinophils (%) (Auto) 2.0 % (0.4-6.7) Basophils (%) (Auto) 0.6 % (0.3-1.4) Nucleated RBC Relative Count (auto) 0.0 /100WBC Neutrophils # (Auto) 6.2 K/uL (2.0-7.4) Lymphocytes # (Auto) 3.2 K/uL (1.3-3.6) Monocytes # (Auto) 0.6 K/uL (0.3-1.0) Eosinophils # (Auto) 0.2 K/uL (0.0-0.5) Basophils # (Auto) 0.1 K/uL (0.0-0.1) Nucleated RBC Absolute Count (auto) 0.00 K/uL Glomerular Filtration Rate Calc > 60.0 Calcium Level 9.1 mg/dl (8.4-10.2) Total Bilirubin 0.8 mg/dl (0.2-1.3) Aspartate Amino Transf (AST/SGOT) 46 U/L (0-35) Alanine Aminotransferase (ALT/SGPT) 48 U/L (0-56) Alkaline Phosphatase 123 U/L (0-126) Troponin I < 0.012 ng/ml B-Type Natriuretic Peptide 162 pg/ml (0-100) Total Protein 7.2 g/dl (6.3-8.2) Albumin 4.3 g/dl (3.5-5.0) Urine Color Straw Urine Clarity Clear Urine pH 7.0 pH (4.8-9.5) Urine Specific [place] 1.006 Urine Protein 30 mg/dL (NEGATIVE) Urine Glucose (UA) 500 mg/dL (NEGATIVE) Urine Ketones Negative mg/dL (NEGATIVE) Urine Blood Negative (NEGATIVE) Urine Nitrite Negative (NEGATIVE) Urine Bilirubin Negative (NEGATIVE) Urine Urobilinogen Negative mg/dL (0.2-1.9) Urine Leukocyte Esterase Negative (NEGATIVE) Urine RBC <1 /HPF (0-2/HPF) Urine WBC <1 /HPF (0-5/HPF) Urine Squamous Epithelial Cells Few /LPF (</=FEW) Urine Bacteria Negative /HPF (NONE-FEW) Urine Mucus None /HPF (NONE-FEW) Urinalysis Test 09/03/18 12:55 Urine Color Straw Urine Clarity Clear Urine pH 7.0 pH (4.8-9.5) Urine Specific [place] 1.006 Urine Protein 30 mg/dL (NEGATIVE) Urine Glucose (UA) 500 mg/dL (NEGATIVE) Urine Ketones Negative mg/dL (NEGATIVE) Urine Blood Negative (NEGATIVE) Urine Nitrite Negative (NEGATIVE) Urine Bilirubin Negative (NEGATIVE) Urine Urobilinogen Negative mg/dL (0.2-1.9) Urine Leukocyte Esterase Negative (NEGATIVE) Urine RBC <1 /HPF (0-2/HPF) Urine WBC <1 /HPF (0-5/HPF) Urine Squamous Epithelial Cells Few /LPF (</=FEW) Urine Bacteria Negative /HPF (NONE-FEW) Urine Mucus None /HPF (NONE-FEW) EKG/Imaging Imaging CT ABDOMEN PELVIS W/ CON COMPARISON: None. HISTORY: LLQ abdominal pain. TECHNIQUE: Axial CT abdomen and pelvis with intravenous contrast. Coronal and sagittal reformats. One of the following dose optimization techniques was utilized in the performance of this exam: automated exposure control; adjustment of the mA and/or kV according to patient size; or use of iterative reconstruction technique. Specific details can be referenced in the facility's radiology CT exam operational policy. CONTRAST: 90 mL of IV Isovue-370. FINDINGS: LUNG BASES: Moderate three-vessel coronary artery calcifications. Moderate distal thoracic aorta atherosclerotic calcifications.. LIVER: Negative. BILIARY: Mild central biliary prominence and common duct prominence, within normal postcholecystectomy. SPLEEN: Negative. PANCREAS: Diffuse fatty deposition. ADRENALS: 1.1 x 1.4 cm left adrenal nodule series 2 image 52, probable adenoma. Normal right adrenal gland. KIDNEYS: Benign cyst in the left kidney and too small to characterize probable cyst in the right kidney. No hydronephrosis, evidence of polynephritis or appre ciable stones. GI/MESENTERY: There is motion artifact across the abdomen. With this noted, no bowel wall thickening, mass or obstruction. Mild sigmoid diverticulosis. Moderate diffuse colonic stool, more than typical, highly suggestive of constipation but clinical correlation is necessary. There is no localized inflammatory fat stranding or ascites and there is no free air.. VASCULAR: Moderate vascular calcifications but no significant vascular stenosis. LYMPH NODES: Negative. BLADDER: Negative. PELVIC ORGANS: Negative. BONES: Mild lower thoracic, moderate lumbar spine, mild bilateral hip joint degenerative changes no acute fractures or concerning bone lesions. OTHER: Negative. IMPRESSION: 1. Large volume of colonic stool which is highly suggestive of constipation but clinical correlation is necessary. 2. Mild diffuse motion artifact throughout the abdomen. With this noted, no acute bowel pathology is seen. 3. Mild sigmoid diverticulosis. 4. Central biliary prominence and common duct prominence which are within normal postcholecystectomy. 5. Additional benign/incidental findings as above. Report Dictated By: Edson Novoa at 09/03/2018 2:10 PM Report E-Signed By: Edson Novoa at 09/03/2018 2:17 PM CHEST PA LAT COMPARISON: None. HISTORY: swelling lower extremities FINDINGS: CARDIAC/VASC: No cardiac silhouette abnormality or cardiomegaly. Unremarkable pulmonary vasculature. MEDIASTINUM: No visible mass or adenopathy. LUNGS/PLEURA: No pneumothorax. Underinflated lungs with mild right lower lobe atelectasis. No significant left lung opacities. No effusion or pleural thickening. BONES: No fracture or visible bony lesion. Moderate degenerative changes in the visualized upper lumbar spine. OTHER: Cholecystectomy clips in the right upper quadrant of the abdomen. IMPRESSION: Underinflated lungs with mild right basilar atelectasis. Prior cholecystectomy. Mild aortic atherosclerosis. Report Dictated By: Edson Novoa at 09/03/2018 1:52 PM Report E-Signed By: Edson Novoa at 09/03/2018 1:54 PM US VENOGRAM EXTREMITY, BILATERAL HISTORY: swelling leg pain COMPARISON: None. FINDINGS: Duplex sonographic images with segmental compressibility and evaluation of respiratory phasicity and augmentation reveals no evidence of clot. No mass or fluid collection. IMPRESSION: No sonographic evidence of DVT. No mass or fluid collection. Report Dictated By: Flakito Madsen MD at 09/03/2018 2:44 PM Report E-Signed By: Flakito Madsen MD at 09/03/2018 2:45 PM ED Course/Re-evaluation ED Course Patient was admitted to an exam room, history and physical were obtained. Differential diagnoses were considered. On examination lungs are clear, heart is regular, abdomen is soft and tender in the left lower quadrant. An IV was started, a CBC, CMP, EKG, troponin, chest x-ray, bilateral venous Doppler, CT scan abdomen and pelvis were done. Lab results were unremarkable. Patient did have a blood sugar of 2:30, he is diabetic. The ultrasound was negative, CT scan of the abdomen and pelvis did show a large stool burden throughout the colon. I discussed the findings with the patient and his . Is my believe this point in time that the patient is having diabetic neuropathy secondary to his diabetes. We'll go ahead and start the patient on gabapentin. The typical treatment method for gabapentin is to take that one time a day 1 day, twice a day for one day and 3 times a day. With this being a new medication for this patient I do want to be a little bit more cautious with that. We will go ahead and do once a day for 3 days, twice a day for 3 days and in 3 times a day. Patient is to follow-up with his primary care provider in the next week to discuss the start of gabapentin and his diabetic neuropathy. Patient and his verbalized understanding and agreement with plan. Decision to Disposition Date: September 03, 2018 Decision to Disposition Time: 15:11 Depart Departure Latest Vital Signs Vital Signs Date Time Temp Pulse Resp B/P (MAP) Pulse Ox O2 Delivery O2 Flow Rate FiO2 09/03/18 15:17 174/99 (124) 09/03/18 15:00 85 12 92 09/03/18 12:29 98.5 Room Air Impression: Primary Impression: Peripheral neuropathy Additional Impression: Constipation Condition: Improved Disposition: HOME OR SELF-CARE Referrals: HUANG KELLEY MD (PCP) New Scripts Gabapentin (GABAPENTIN) 300 Mg Capsule 300 MG PO DIRECTED, #90 CAPSULE Take 1 tab daily x 3 days, then take 1 tab twice a day x 3 days, then three times a day. Prov: MITZI SELF PRAKASH 09/03/18 Patient Instructions: Diabetic Peripheral Neuropathy (ED) Additional Instructions: Follow up with your primary care provider in the next 3-4 days. Take the medication as prescribed. Return to the ER if condition worsens. Continue with your current medications. Problem Qualifiers Primary Impression: Peripheral neuropathy Peripheral neuropathy type: polyneuropathy associated with underlying disease Qualified Codes: G63 - Polyneuropathy in diseases classified elsewhere Additional Impression: Constipation Constipation type: unspecified constipation type Qualified Codes: K59.00 - Constipation, unspecified MITZI SELF September 03, 2018 12:34
[2018-09-03 12:57] LABS: PLATELET COUNT, AUTOMATED 193 K/uL (150-450)
[2018-09-03] MEDS ORDERED: IOPAMIDOL 76% 100 ML INFUS BTL 100 ML ONE (13:32)
--- NOTE | 2018-09-03 13:40 | EKG ---
[place] [facility] [place] NAME: CLAUDIA HO : [id number] MR: [id number] V: [id number] EXAM DATE: ORDERING PHYSICIAN: MTIZI SELF TECHNOLOGIST: ARIELLA Test Reason : Blood Pressure : / mmHG Vent. Rate : 085 BPM Atrial Rate : 085 BPM P-R Int : 248 ms QRS Dur : 110 ms QT Int : 418 ms P-R-T Axes : -43 011 -25 degrees QTc Int : 497 ms Unusual P axis, possible ectopic atrial rhythm Septal infarct , age undetermined Inferior infarct (cited on or before 19-DEC-2016) Abnormal ECG When compared with ECG of 19-DEC-2016 19:11, Ectopic atrial rhythm has replaced Sinus rhythm Septal infarct is now present T wave inversion now evident in Inferior leads T wave inversion no longer evident in Lateral leads QT has lengthened Confirmed by NORMA ALBARRAN ([id number]) on 09/03/2018 8:30:59 PM Referred By: JOSE Confirmed By:NORMA ALBARRAN
--- NOTE | 2018-09-03 13:58 | RADIOLOGY IMAGING REPORT ---
FACILITY: [facility] PATIENT NAME: Ismael Warner : 1935 MR: [id number] V: [id number] EXAM DATE: ORDERING PHYSICIAN: MITZI SELF TECHNOLOGIST: Location: [facility] - [place] Patient: Ismael Warner : 1935 Visit/Account:[id number] Date of Sevice: 09/03/2018 CHEST PA LAT COMPARISON: None. HISTORY: swelling lower extremities FINDINGS: CARDIAC/VASC: No cardiac silhouette abnormality or cardiomegaly. Unremarkable pulmonary vasculatu re. MEDIASTINUM: No visible mass or adenopathy. LUNGS/PLEURA: No pneumothorax. Underinflated lungs with mild right lower lobe atelectasis. No signif icant left lung opacities. No effusion or pleural thickening. BONES: No fracture or visible bony lesion. Moderate degenerative changes in the visualized upper lumbar spine. OTHER: Cholecystectomy clips in the right upper quadrant of the abdomen. IMPRESSION: Underinflated lungs with mild right basilar atelectasis. Prior cholecystectomy. Mild aortic atheroscl erosis. Report Dictated By: Edson Novoa at 09/03/2018 1:52 PM Report E-Signed By: Edson Novoa at 09/03/2018 1:54 PM WSN:[id number]
--- NOTE | 2018-09-03 14:20 | RADIOLOGY IMAGING REPORT ---
FAC[place]: [facility] [place]IENT NAME: Ismael Warner : 1935 MR: [id number] V: [id number] EXAM DATE: ORDERING PHYSICIAN: MITZI SELF TECHNOLOGIST: Location: [facility] - [place] Patient: Ismael Warner : 1935 Visit/Account:[id number] Date of Sevice: 09/03/2018 CT ABDOMEN PELVIS W/ CON COMPARISON: None. HISTORY: LLQ abdominal pain. TECHNIQUE: Axial CT abdomen and pelvis with intravenous contrast. Coronal and sagittal reformats. O ne of the following dose optimization techniques was utilized in the performance of this exam: autom ated exposure control; adjustment of the mA and/or kV according to patient size; or use of iterative reconstruction technique. Specific details can be referenced in the facility's radiology CT exam ope rational policy. CONTRAST: 90 mL of IV Isovue-370. FINDINGS: LUNG BASES: Moderate three-vessel coronary artery calcifications. Moderate distal thoracic aorta ath erosclerotic calcifications.. LIVER: Negative. BILIARY: Mild central biliary prominence and common duct prominence, within normal postcholecystectomy. SPLEEN: Negative. PANCREAS: Diffuse fatty deposition. ADRENALS: 1.1 x 1.4 cm left adrenal nodule series 2 image 52, probable adenoma. Normal right adrenal gland. KIDNEYS: Benign cyst in the left kidney and too small to characterize probable cyst in the right kid michelle. No hydronephrosis, evidence of polynephritis or appreciable stones. GI/MESENTERY: There is motion artifact across the abdomen. With this noted, no bowel wall thickening , mass or obstruction. Mild sigmoid diverticulosis. Moderate diffuse colonic stool, more than typical , highly suggestive of constipation but clinical correlation is necessary. There is no localized infl ammatory fat stranding or ascites and there is no free air.. VASCULAR: Moderate vascular calcifications but no significant vascular stenosis. LYMPH NODES: Negative. BLADDER: Negative. PELVIC ORGANS: Negative. BONES: Mild lower thoracic, moderate lumbar spine, mild bilateral hip joint degenerative changes no acute fractures or concerning bone lesions. OTHER: Negative. IMPRESSION: 1. Large volume of colonic stool which is highly suggestive of constipation but clinical correlation is necessary. 2. Mild diffuse motion artifact throughout the abdomen. With this noted, no acute bowel pathology is seen. 3. Mild sigmoid diverticulosis. 4. Central biliary prominence and common duct prominence which are within normal postcholecystectomy . 5. Additional benign/incidental findings as above. Report Dictated By: Edson Novoa at 09/03/2018 2:10 PM Report E-Signed By: Edson Novoa at 09/03/2018 2:17 PM WSN:[id number]
--- NOTE | 2018-09-03 14:48 | RADIOLOGY IMAGING REPORT ---
FACILITY: [facility] PATIENT NAME: Ismael Warner : 1935 MR: [id number] V: [id number] EXAM DATE: ORDERING PHYSICIAN: MITZI SELF TECHNOLOGIST: Location: [facility] - [place] Patient: Ismael Warner : 1935 Visit/Account:[id number] Date of Sevice: 09/03/2018 US VENOGRAM EXTREMITY, BILATERAL HISTORY: swelling leg pain COMPARISON: None. FINDINGS: Duplex sonographic images with segmental compressibility and evaluation of respiratory phasicity and augmentation reveals no evidence of clot. No mass or fluid collection. IMPRESSION: No sonographic evidence of DVT. No mass or fluid collection. Report Dictated By: Flakito Madsen MD at 09/03/2018 2:44 PM Report E-Signed By: Flakito Madsen MD at 09/03/2018 2:45 PM WSN:[id number]
[2018-09-03] MEDS ORDERED: GABA-549 PO (15:13)
[2018-09-03] MEDS ORDERED: GABAPENTIN 300 MG CAP PO ONE (15:15)
[2018-09-03 15:17] VITALS: BP 174/99
[2018-09-04] MEDS ORDERED: POTA20TA94 PO (10:45)
[2018-09-05] MEDS ORDERED: ROSU5TAB3 PO (14:45)
== END 2018-09-03 16:04 | disposition home or self-care (01) ==
LOC: ER 12:33
DX: G63 Polyneuropathy in diseases classified elsewhere (principal); K59.00 Constipation, unspecified; R94.31 Abnormal electrocardiogram [ECG] [EKG]; Z79.82 Long term (current) use of aspirin; I10 Essential (primary) hypertension; E11.9 Type 2 diabetes mellitus without complications; I25.2 Old myocardial infarction; Z86.73 Personal history of transient ischemic attack (TIA), and cerebral infarction without residual deficits; K57.30 Diverticulosis of large intestine without perforation or abscess without bleeding; E78.5 Hyperlipidemia, unspecified
CPT/HCPCS: 71046; 74177; 81001; 83880; 84484; 85025; 93005; 93970; 99284; A9270; Q9967; 82040; 82247; 82310; 82374; 82435; 82565; 82947; 84075; 84132; 84155; 84295; 84450; 84460; 84520

== ENCOUNTER → 2018-09-19 | Outpatient (REF) | payer MEDICARE ==
[2016-03-31 11:11] VITALS: BMI 33.8
[~2018-09-19] MED LIST changes: -OMEP-125 PO; +OMEP-126 PO
== END ==
LOC: ZZSENDIN 14:15
PROVIDERS: ATTEND Emergency Medicine
DX: R10.13 Epigastric pain (principal)
CPT/HCPCS: 87338

== ENCOUNTER → 2018-09-22 | Outpatient (CLI) | payer MEDICARE ==
[2016-03-31 11:11] VITALS: BMI 33.8
[~2018-09-22] MED LIST changes: +ONDA8TAB91 PO
== END ==
LOC: RESP 19:33
PROVIDERS: ATTEND Emergency Medicine
DX: G47.33 Obstructive sleep apnea (adult) (pediatric) (principal); G47.36 Sleep related hypoventilation in conditions classified elsewhere; G47.61 Periodic limb movement disorder

== ENCOUNTER 2018-10-10 10:30 | Outpatient (RCR) | payer MEDICARE ==
[2016-03-31 11:11] VITALS: BMI 33.8
--- NOTE | 2018-07-18 07:40 | PT INITIAL EVALUATION ---
MEDICAL DIAGNOSIS: Neck Pain TREATMENT DIAGNOSIS: Cervical Dysfunction DATE OF ONSET: 07/16/18 SUBJECTIVE: "Radha" is a 83 year old male presenting to physical therapy following 2-3 MO onset of neck pain R>L. In addition to neck pain pt also has headaches likely related to recent findings of brain MRI showing a 2.1 x 1.5 x 1.8 cm right frontotemporal extraaxial mass assumed to be likely meningioma. Pt is to follow up in one month for rescan for tumor assessment of growth. Pt reports that the neck pain is mostly at the back of the neck on the R but occasionally moves up and around the R ear. Pain is increased with sitting for prolonged periods watching TV, cold weather, and also is worse in the morning. Pt reports that he sleeps and watches TV in his recliner. Pain is currently rated as a 2/10 and gets up to a 3/10 at worst. REHAB PROBLEM LIST: Increased Pain Decreased ROM Decreased Function Decreased ADL's Decreased Mobility PREVIOUS MEDICAL HISTORY: See EMR OCCUPATION: See EMR OBJECTIVE: Posture: Forward head posture with increased thoracic kyphosis ROM: Cervical ROM: flexion: full with slight pain, ext: minimal restrictions with posterior pain, L rotation: full with incresed pain, R rotation: full with slight pain, L SB: minimal restrictions with increased pain, R SB: full with ache pain. Palpation: Pt is ttp along the sub occipitals and longitudinal muscles at the base of the skull on the R side only. Pain continues out to mid R UT level and down to T3 level Sensation: Pt reports no numbness or tingling in fingers of B UE. Special Tests: Repeated cervical motion screen: flexion: no change, ext: no change, R SB: decreased pain to C5 to occiput midline only ASSESSMENT: Ismael Ling" shows signs and symptoms consistent with cervical dysfunction with impingement resulting in R sided neck pain. Physical therapy is indicated for this patient to address the above listed deficits to improve function with ADL's. Short Term Goals In 3 weeks pt will improve cervical ROM to full without pain for improved function with ADL's. In 4 weeks pt will centralize the pain to the cervical spine only for improved function with ADL's. In 6 weeks pt will have no neck pain for improved function with ADL's. Patient's Goals Decrease neck pain. PLAN: Patient to be seen for Manual Therapy/STM/MET Strengthening/condition Ice/Heat Range of Motion Spinal Stabilization Ultrasound Stretching Iontophoresis Neuromuscular Re-ed Electrical Stim Posture/Body mechanics Biofeedback Home Exercise Program Mech./Manual Traction Therapeutic Activities 3x/Week for 6 Weeks If you have any questions, comments, or concerns about this report or plan, please contact me at . Thank you, Massiel Ariza, PT, DPT, CLT MTDD
--- NOTE | 2018-08-10 14:30 | PT PLAN OF CARE ---
Physician: Inessa Fagan MD Patient is being seen: 2-3x/Week Therapist: Massiel Ariza PT, DPT, CLT Medical Diagnosis: Neck Pain Treatment Diagnosis: Cervical Dysfunction Date of Onset: 07/16/18 Date of Initial Evaluation: 07/16/18 Date patient was last seen: 08/10/18 Number of treatments: 10 Number of cancellations/No shows: 0 INTERVENTIONS: Manual Therapy/STM/MET Strengthening/condition Ice/Heat Range of Motion Spinal Stabilization Ultrasound Stretching Iontophoresis Neuromuscular Re-ed Electrical Stim Posture/Body mechanics Biofeedback Home Exercise Program Mech./Manual Traction Therapeutic Activities GOALS: In 3 weeks pt will improve cervical ROM to full without pain for improved function with ADL's. In 4 weeks pt will centralize the pain to the cervical spine only for improved function with ADL's. MET In 6 weeks pt will have no neck pain for improved function with ADL's. PATIENT'S GOAL: Decrease neck pain. Status of Patient's Goals: 1/3 MET, 2/3 In Progress Patient Compliance: Fair Prognosis: Good Reasons for continuing therapy: "Radha" overall shows improvement of neck pain with inconsistency day to day but generally a centralizing and reducing trend. Pain is currently at the base of the neck only without radiation to the R shoulder or head. Pt shows inconsistent compliance with HEP with language barrier occasionally a problem. Further PT is indicated to continue to decrease pain and improve functional status. Posture: Forward head posture with increased thoracic kyphosis ROM: Cervical ROM: flexion: full with slight pain, ext: minimal restrictions with slight pain, L rotation: full with increased pain, R rotation: full with slight pain, L SB: full with pain, R SB: full with pain Palpation: Pt is ttp along the sub occipitals and longitudinal muscles at the base of the skull on the R side only. If you have any questions, please feel free to contact me at [phone]. Thank you, Massiel Ariza PT, DPT, CLT LINDY
--- NOTE | 2018-08-15 16:33 | NUR ---
PT assessed pt per concerns for LE redness and warmth. Venous insufficiency is noted in B LE R>L with appearance of fully healed wound on the R mid gann level. Bright redness is present surrounding the gann area on the R with pink coloration on the L with temperature measured at an average of 98 degrees on the red area and 95-96 degrees in the surrounding area. Area was outlined with a marker to monitor for spread. Pt notes sensitivity in the area but denies fever and chills overall. Pt and are concerned about no one doing anything about the legs and the risk for infection. Addendum: 08/15/18 at 1636 by DELBERT BELL PT Amended: Links added.
--- NOTE | 2018-09-14 11:51 | PT PLAN OF CARE ---
Physician: Inessa Faagn MD Patient is being seen: 2-3x/Week Therapist: Msasiel Ariza, PT, DPT, CLT Medical Diagnosis: Neck Pain Treatment Diagnosis: Cervical Dysfunction Date of Onset: 07/16/18 Date of Initial Evaluation: 07/16/18 Date patient was last seen: 09/14/18 Number of treatments: 20 Number of cancellations/No shows: 0 INTERVENTIONS: Manual Therapy/STM/MET Strengthening/condition Ice/Heat Range of Motion Spinal Stabilization Ultrasound Stretching Iontophoresis Neuromuscular Re-ed Electrical Stim Posture/Body mechanics Biofeedback Home Exercise Program Mech./Manual Traction Therapeutic Activities GOALS: In 3 weeks pt will improve cervical ROM to full without pain for improved function with ADL's. MET In 4 weeks pt will centralize the pain to the cervical spine only for improved function with ADL's. MET In 6 weeks pt will have no neck pain for improved function with ADL's. PATIENT'S GOAL: Decrease neck pain. Status of Patient's Goals: 2/3 MET, 1/3 In Progress Patient Compliance: Fair Prognosis: Good Reasons for continuing therapy: "Radha" shows good progress towards decreased pain and improved mobility in the neck. The last two sessions pt has had no neck pain, but he remains to report that it comes on occasionally. Pt has showed good progress with improved scapulo-humeral mechanics decreasing UT activation and reports that he can do more functional activities around the house such as yard work. Secondary to neck pain pt has increased LBP with yard work which has been centralized with extension as well but remains limiting in ADL's. Further PT to maintain low pain status with cervical spine and improve strength and function with ADL's. ROM: Cervical ROM: flexion: full, ext: full with no pain, L rotation: full, R rotation: full, L SB: full, R SB: full If you have any questions, please feel free to contact me at [phone]. Thank you, Massiel Ariza, PT, DPT, CLT [facility]
--- NOTE | 2018-10-05 12:02 | PT PLAN OF CARE ---
Physician: Inessa Fagan MD Patient is being seen: 3x/Week Therapist: Massiel Ariza, PT, DPT, CLT Medical Diagnosis: Neck Pain, bilateral leg pain Treatment Diagnosis: Cervical Dysfunction, lumbar dysfunction, venous insufficiency Date of Onset: 07/16/18 Date of Initial Evaluation: 07/16/18 Date patient was last seen: 10/05/18 Number of treatments: 28 Number of cancellations/No shows: 1 INTERVENTIONS: Manual Therapy/STM/MET Strengthening/condition Ice/Heat Range of Motion Spinal Stabilization Ultrasound Stretching Iontophoresis Neuromuscular Re-ed Electrical Stim Posture/Body mechanics Biofeedback Home Exercise Program Mech./Manual Traction Therapeutic Activities GOALS: In 3 weeks pt will improve cervical ROM to full without pain for improved function with ADL's. MET In 4 weeks pt will centralize the pain to the cervical spine only for improved function with ADL's. MET In 6 weeks pt will have no neck pain for improved function with ADL's. MET In 8 weeks pt will centralize pain from the L LE to the back only and have it reduced to <2/10 for improved function with ADL's. In 8 weeks pt will no longer have pitting in B dorsum's for improved venous and lymphatic return and decreased pain. PATIENT'S GOAL: Decrease neck pain. Status of Patient's Goals: 3/5 MET, 2/5 In Progress Patient Compliance: Fair Prognosis: Good Reasons for continuing therapy: Ismael continues to improve with spinal pain with management with repeated extension. Cervical pain at this time is consistently absent, however, secondary to poor compliance with ADL's and HEP, LBP has been slow to progress with frequent reinjury with yard work. 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 MLD with compression garment use is indicated for this patient to decrease pain and improve venous and lymphatic return. Treatment on the lumbar spine to continue while focus shifts to LE. ROM: Cervical ROM: flexion: full, ext: full with no pain, L rotation: full, R rotation: full, L SB: full, R SB: full Lumbar ROM: flexion: full with pain in L LE, ext: full. Circumferential Measures (R,L) in cm: 1st digit: 8, 7.4, 2nd: 5.6, 4.8, Dorsum: 24.4, 23, Arch: 23.6, 22.8, Heel: 32.5, 30.8, Abv Mal: 31.4, 32.2, Figure-8: 51.5, 50.9, Calf: 33.7, 33, below knee: 37.3, 36. Palpation: pitting present on R dorsum with (+) Stemmer's sign on R dorsum, and B 1st digits. Observation: Hemosiderin staining present on B shins with wound scabbed over on L gann 2.1 cm height, 1 cm width. If you have any questions, please feel free to contact me at [phone]. Thank you, Massiel Ariza, PT, DPT, CLT MTDD
== END 2018-10-14 ==
LOC: PT 10:30
PROVIDERS: ATTEND Emergency Medicine
DX: M54.2 Cervicalgia (principal)
CPT/HCPCS: 97161

== ENCOUNTER 2018-10-11 11:04 | Emergency (ER) | payer MEDICARE ==
[2016-03-31 11:11] VITALS: Wt 108.9 kg
--- NOTE | 2018-10-11 11:17 | ER Report ---
History and Physical Time Seen By : 11:12 HPI/ROS CHIEF COMPLAINT: Constipation HISTORY OF PRESENT ILLNESS: This is an 83-year-old male who presents to the emergency department for abdominal pain. Patient states that it has been 5-6 days since he's had a bowel movement, he's had distention increased abdominal discomfort. He normally takes MiraLAX, he's increased it to about 1-1/2 Day with No Resolution. No Fevers, No Chills, No Chest Pain or Shortness of Breath. No Dysuria. No Other Complaints. REVIEW OF SYSTEMS: Constitutional: No fever, no chills. Eyes: No discharge. ENT: No sore throat. Cardiovascular: No chest pain, no palpitations. Respiratory: No cough, no shortness of breath. Gastrointestinal: As above. Genitourinary: No hematuria. Musculoskeletal: No back pain. Skin: No rashes. Neurological: No headache. Allergies: Coded Allergies: shellfish derived (Verified Allergy, Severe, AIRWAY OBSTRUCTION, 09/03/18) tramadol (Verified Allergy, Mild, 09/03/18) Home Meds Active Scripts Hydrocodone Bit/Acetaminophen (NORCO 7.5-325 TABLET) 1 Each Tablet, 1 EACH PO TID, #90 TAB 0 Refills Prov:HUANG KELLEY MD 10/04/18 Pregabalin (LYRICA) 50 Mg Capsule, 50 MG PO DAILY, #90 CAPSULE 3 Refills Prov:HUANG KELLEY MD 10/04/18 Ondansetron Hcl (ZOFRAN) 8 Mg Tablet, 8 MG PO Q12H for Nausea, #10 TAB Prov:HUANG KELLEY MD 10/04/18 Rosuvastatin Calcium (Rosuvastatin Calcium) 5 Mg Tablet, 1 TAB PO DAILY, #90 TAB 3 Refills Prov:HUANG KELLEY MD 09/05/18 Potassium Chloride (POTASSIUM CHLORIDE) 20 Meq Tab.er.prt, 60 MEQ PO QDAY, #42 TAB 0 Refills Prov:HUANG KELLEY MD 09/04/18 Gabapentin (GABAPENTIN) 300 Mg Capsule, 300 MG PO DIRECTED, #90 CAPSULE Take 1 tab daily x 3 days, then take 1 tab twice a day x 3 days, then three times a day. Prov:MITZI SELF 09/03/18 Losartan Potassium (LOSARTAN POTASSIUM) 100 Mg Tablet, 100 MG PO QDAY, #90 TAB 3 Refills Prov:HUANG KELLEY MD 08/03/18 Clonidine Hcl (CLONIDINE HCL) 0.1 Mg Tablet, 2 TAB PO BID, #180 TAB 3 Refills Prov:HUANG KELLEY MD 08/02/18 Hydrochlorothiazide (HYDROCHLOROTHIAZIDE) 25 Mg Tablet, 2 TAB PO QDAY, #135 TAB 3 Refills Prov:HUANG KELLEY MD 07/03/18 Meclizine Hcl (MECLIZINE HCL) 12.5 Mg Tablet, 12.5 MG PO TID PRN for DIZZINESS, #90 TAB 5 Refills Prov:HUANG KELLEY MD 07/03/18 Insulin Lispro 200 UN/ML PEN (Humalog Kwikpen) 200 Unit/1 Ml Insuln.pen, 6 UNITS SUBQ TID, #3 DIS.SYR 3 Refills Take 6 units subcutaneously three times a day. Prov:HUANG KELLEY MD 06/22/18 Insulin Glargine (LANTUS) 100 Unit/Ml Soln, 25 UNIT SUBQ HS, #3 VIAL 3 Refills Prov:HUANG KELLEY MD 05/31/18 Amlodipine Besylate (AMLODIPINE BESYLATE) 10 Mg Tablet, 1 TAB PO QDAY, #90 TAB 3 Refills Prov:HUANG KELLEY MD 02/19/18 [place], Insulin Disposable (Bd Ultra-Fine Pen Needle) 1 Each Dis.needle, BOX SQ TID, #3 4 Refills Prov:HUANG KELLEY MD 02/14/18 Syringe & Needle,Insulin,1 Ml (INSULIN SYRINGE) 1 Each Disp.syrin, EACH MC DAILY, #3 Prov:HUANG KELLEY MD 01/19/18 Dexlansoprazole (DEXILANT) 60 Mg , 1 MG PO QDAY, #90 CAP 3 Refills Prov:HUANG KELLEY MD 01/19/18 Metformin Hcl (METFORMIN HCL) 500 Mg Tablet, 1 TAB PO HS, #90 TAB 3 Refills TAKE ONE TABLET BY MOUTH ONCE A DAY WITH FOOD Prov:HUANG KELLEY MD 01/05/18 Fluticasone Prop 50 Mcg Ns (FLONASE 50 MCG NS) 16 Gm [place].susp, 1 SPRAY NS BID, #1 CON 12 Refills Prov:HUANG KELLEY MD 09/07/16 Finasteride (FINASTERIDE) 5 Mg Tablet, 5 MG PO QDAY, #90 TAB 3 Refills Prov:HUANG KELLEY MD 04/29/15 Tamsulosin Hcl (TAMSULOSIN HCL) 0.4 Mg Cap.er.24h, 1 CAP PO DAILY, #90 CAP 3 Refills Prov:CHIDI SCOTT MD 01/31/14 Aspirin (Children's Aspirin) 81 Mg Tab.chew, 1 TAB PO DAILY, #100 4 Refills Prov:CHIDI SCOTT MD 11/19/13 Reported Medications Edcouch-3 Fatty Acids/Fish Oil (FISH OIL 1,000 MG CAPSULE) 1 Each Capsule, 1 EACH PO DAILY, CAPSULE 11/20/17 Solifenacin Succinate (VESICARE) 10 Mg Tablet, 1 TAB PO DAILY 09/19/16 Mirabegron (MYRBETRIQ) 50 Mg Tab.er.24h, 1 TAB PO DAILY 09/19/16 Multivitamins (Multivitamin) 1 Each Capsule, 1 EACH PO DAILY 07/22/11 Past Medical/Surgical History The patient has a past medical and surgical history of sinus surgery, cataract surgery, hard of hearing, wears glasses, allergic rhinitis, CVA, hypertension, hypercholesterolemia, myocardial infarction, aortic stenosis, peripheral vascular disease, hypertension, pneumonia, sleep apnea, GERD, occasional constipation, colonoscopy, obesity, kidney stones, BPH, questionable TURP, arthritis, gout, back surgery, hand surgery, knee surgery, type II insulin- dependent diabetic. Reviewed Nurses Notes: Yes Hx Smoking: No Smoking Status: Never Smoker Exposure to Second Hand Smoke?: No Hx Substance Use Disorder: No Hx Alcohol Use: Yes Constitutional Vital Sign - Last 24 Hours 10/11/18 10/11/18 10/11/18 10/11/18 11:12 11:14 11:19 11:24 Pulse 61 58 56 B/P (MAP) 207/91 (129) Pulse Ox 89 89 90 10/11/18 10/11/18 10/11/18 11:25 11:29 11:34 Temp 98.2 Pulse 88 55 Resp 16 B/P (MAP) 201/97 Pulse Ox 90 91 90 O2 Delivery Room Air Physical Exam General Appearance: The patient is alert, has no immediate need for airway protection and no signs of toxicity. Eyes: Pupils equal and round no pallor or injection. ENT, Mouth: Mucous membranes are moist. Respiratory: There are no retractions, lungs are clear to auscultation. Cardiovascular: Regular rate and rhythm. Systolic murmur, no clicks or rubs. Gastrointestinal: Abdomen is round, soft and diffusely tender with palpation, normoactive bowel sounds in all quadrants. No masses, no abdominal bruits. . Neurological: Alert and oriented 4. Moving all cavities. Falling. No focal neuro deficits. Skin: Warm and dry, no rashes. Musculoskeletal: Neck is supple non tender. Extremities are nontender, nonswollen and have full range of motion. DIFFERENTIAL DIAGNOSIS: After history and physical exam differential diagnosis was considered for abdominal pain including but not limited to appendicitis, cholecystitis, gastritis and urinary tract infection. Medical Decision Making EKG/Imaging Imaging PATIENT NAME: Ismael Warner : 1935 MR: [id number] V: [id number] EXAM DATE: ORDERING PHYSICIAN: DARYL BALDERRAMA TECHNOLOGIST: Location: [facility] - [place] Patient: Ismael Warner : 1935 Visit/Account:[id number] Date of Sevice: 10/11/2018 Exam type: ACUTE ABDOMEN SERIES 3 VIEW INDICATION: No bowel movement for one week. COMPARISON: CT dated July 04, 2018. FINDINGS: Heart size within normal limits. Calcification within the aortic knob. There is no focal infiltrate or consolidation. Mild atelectasis and/or scarring within the lung bases. Mild asymmetric elevation of the right hemidiaphragm. No evidence of pneumothorax or pleural effusion. Bowel gas seen throughout the abdomen in a nonobstructive pattern. Large volume stool throughout the colon. There are no pathologic calcifications identified. No evidence of free air under the right hemidiaphragm. Surgical clips within the right upper quadrant. Clinical IMPRESSION: 1. No acute cardiopulmonary process. 2. Large volume stool within the colon Report Dictated By: Marco Antonio Lyle MD at 10/11/2018 12:16 PM Report E-Signed By: Marco Antonio Lyle MD at 10/11/2018 12:19 PM WSN:[id number] ED Course/Re-evaluation ED Course The patient was admitted to room. A history and physical obtained. Differential diagnoses were considered. A 3 view x-ray of the abdomen was obtained, showing constipation, no obstruction. I did review the results with the patient. I did a digital disimpaction, there is no stool in the rectal vault, an enema was administered, with some resolution of stool, patient was given magnesium citrate to go home with, I also instructed patient to increase his MiraLAX from 1-1-1/2 A 2 to her Day, I Also Instructed Him to Increase His Fluid Intake and Follow-Up with His Primary Care Provider for Reevaluation, He Will Return to the ER for Any Acute Concerns or Worsening Symptoms, Patient and His Are Agreeable to Plan of Care and Discharged Home. Decision to Disposition Date: Oct 11, 2018 Decision to Disposition Time: 14:21 Depart Departure Latest Vital Signs Vital Signs Date Time Temp Pulse Resp B/P (MAP) Pulse Ox O2 Delivery O2 Flow Rate FiO2 10/11/18 11:34 90 10/11/18 11:29 55 10/11/18 11:25 98.2 16 201/97 Room Air Impression: Primary Impression: Constipation Condition: Improved Disposition: HOME OR SELF-CARE Referrals: HUANG KELLEY MD (PCP) 1 Week Patient Instructions: Constipation (ED) Additional Instructions: Increase your MiraLax to 2 capfulls a Day, One in the Morning and One in the Evening. Be sure to drink plenty of water. This will help with the stool transit. When you get home drink the magnesium citrate, this will also help with the stooling. Continue your regular medications. Follow-up with your primary care provider within one week for reevaluation, you may need to add a daily stool softener to her diet. Return to the ER for any concerns or worsening symptoms. Problem Qualifiers Primary Impression: Constipation Constipation type: unspecified constipation type Qualified Codes: K59.00 - Constipation, unspecified DARYL BALDERRAMAP-OTILIA Oct 11, 2018 11:17
[2018-10-11 11:25] VITALS: BP 201/97
--- NOTE | 2018-10-11 12:26 | RADIOLOGY IMAGING REPORT ---
FACILITY: [facility] PATIENT NAME: Ismael Warner : 1935 MR: [id number] V: [id number] EXAM DATE: ORDERING PHYSICIAN: DARYL BALDERRAMA TECHNOLOGIST: Location: [facility] Patient: Ismael Warner : 1935 Visit/Account:[id number] Date of Sevice: 10/11/2018 Exam type: ACUTE ABDOMEN SERIES 3 VIEW INDICATION: No bowel movement for one week. COMPARISON: CT dated July 04, 2018. FINDINGS: Heart size within normal limits. Calcification within the aortic knob. There is no focal in filtrate or consolidation. Mild atelectasis and/or scarring within the lung bases. Mild asymmetric el evation of the right hemidiaphragm. No evidence of pneumothorax or pleural effusion. Bowel gas seen throughout the abdomen in a nonobstructive pattern. Large volume stool throughout the colon. There are no pathologic calcifications identified. No evidence of free air under the right hem idiaphragm. Surgical clips within the right upper quadrant. Clinical IMPRESSION: 1. No acute cardiopulmonary process. 2. Large volume stool within the colon Report Dictated By: Marco Antonio Lyle MD at 10/11/2018 12:16 PM Report E-Signed By: Marco Antonio Lyle MD at 10/11/2018 12:19 PM WSN:[id number]
[2018-10-11] MEDS: MAGNESIUM CITRATE 300 ML BTL PO ONE ×2 (13:10→14:30)
== END 2018-10-11 14:45 | disposition home or self-care (01) ==
LOC: ER 11:12
DX: K59.00 Constipation, unspecified (principal)
CPT/HCPCS: 74022; 99283; A9270

== ENCOUNTER → 2018-10-16 | Outpatient (CLI) | payer MEDICARE ==
[2016-03-31 11:11] VITALS: BMI 33.8
[~2018-10-16] MED LIST changes: +GADOBENATE 529MG/1ML 15ML VIAL IVP ONE
--- NOTE | 2018-10-16 09:30 | RADIOLOGY IMAGING REPORT ---
FACILITY: [facility] PATIENT NAME: Ismael Warner : 1935 MR: [id number] V: [id number] EXAM DATE: ORDERING PHYSICIAN: HUANG KELLEY TECHNOLOGIST: Location: [facility] - [place] Patient: Ismael Warner : 1935 Visit/Account:[id number] Date of Sevice: 10/16/2018 EXAMINATION: MRI brain without IV contrast MRI brain with IV contrast HISTORY: Meningioma follow-up, headaches COMPARISON: 07/11/2018 TECHNIQUE: Multi-planar, multi-sequence brain MRI was performed before and after IV gadolinium. CONTRAST: 15 mL of IV MultiHance FINDINGS: Brain volume: Stable Sagittal midline structures: Normal. Ventricles: Normal. Acute ischemic changes: None. Hemorrhage: None. Masses/edema: Dural based mass along the right sphenoid bone measures 2.0 x 1.5 x 2.0 cm. No surroun ding edema. No significant mass effect on the adjacent brain. Enhancement: Above dural based mass demonstrates homogenous enhancement. Frausto-white: Negative. White matter: Normal. Vessels: Normal. Visualized sinuses/orbits: Bilateral lens removal or replacement. Leftward nasal septal deviation. P resumed prior functional sinus surgery. Visualized upper neck: Negative. IMPRESSION: No significant change in enhancing dural based mass along the right sphenoid bone, likely a meningioma. Report Dictated By: TITA MELENDEZ at 10/16/2018 9:10 AM Report E-Signed By: TITA MELENDEZ at 10/16/2018 9:22 AM WSN:[id number]
== END ==
LOC: MRI 10-12 00:20
PROVIDERS: ATTEND Emergency Medicine
DX: D32.9 Benign neoplasm of meninges, unspecified (principal)
CPT/HCPCS: 70553; A9577

== ENCOUNTER 2018-11-29 10:30 | Outpatient (RCR) | payer MEDICARE ==
[2016-03-31 11:11] VITALS: BMI 33.8
--- NOTE | 2018-10-18 12:26 | PT PLAN OF CARE ---
Physician: Inessa Fagan MD Patient is being seen: 3x/Week Therapist: Massiel Ariza, PT, DPT, CLT Medical Diagnosis: Neck Pain Treatment Diagnosis: Cervical Dysfunction Date of Onset: 07/16/18 Date of Initial Evaluation: 07/16/18 Date patient was last seen: 10/17/18 Number of treatments: 32 Number of cancellations/No shows: 1 INTERVENTIONS: Manual Therapy/STM/MET Strengthening/condition Ice/Heat Range of Motion Spinal Stabilization Ultrasound Stretching Iontophoresis Neuromuscular Re-ed Electrical Stim Posture/Body mechanics Biofeedback Home Exercise Program Mech./Manual Traction Therapeutic Activities GOALS: In 3 weeks pt will improve cervical ROM to full without pain for improved function with ADL's. MET In 4 weeks pt will centralize the pain to the cervical spine only for improved function with ADL's. MET In 6 weeks pt will have no neck pain for improved function with ADL's. MET In 8 weeks pt will centralize pain from the L LE to the back only and have it reduced to <2/10 for improved function with ADL's. In 8 weeks pt will no longer have pitting in B dorsum's for improved venous and lymphatic return and decreased pain. PATIENT'S GOAL: Decrease neck pain. Status of Patient's Goals: 3/5 MET, 2/5 In Progress Patient Compliance: Fair Prognosis: Good Reasons for continuing therapy: With MLD treatment pt reports decreased leg pain B. Despite improve pain skin mobility remains limited with pitting still evident but improved. Dorsum of B feet shows improved mobility with decreased edema. Additionally discoloration on B shins has improved with healing of L gann wound. LBP remains to come and go dependent on pt performing yard work at home and compliance with HEP. Further PT to continue to improve LE mobility and decreased pain while continuing to treat lumbar dysfunction. ROM: Cervical ROM: full in all motions without pain Lumbar ROM: full in all motions without pain. Circumferential Measures (R,L) in cm: 1st digit: 8, 7.4, 2nd: 5.6, 4.8, Dorsum: 24.4, 23, Arch: 23.6, 22.8, Heel: 32.5, 30.8, Abv Mal: 31.4, 32.2, Figure-8: 51.5, 50.9, Calf: 33.7, 33, below knee: 37.3, 36. Palpation: pitting present on R dorsum with (+) Stemmer's sign on R dorsum, and B 1st digits. Observation: Hemosiderin staining present on B shins. If you have any questions, please feel free to contact me at [phone]. Thank you, Massiel Ariza, PT, DPT, CLT MTDD
--- NOTE | 2018-11-19 15:43 | PT PLAN OF CARE ---
Physician: Inessa Fagan MD Patient is being seen: 3x/Week Therapist: Massiel Ariza, PT, DPT, CLT Medical Diagnosis: Neck Pain, Bilateral Leg Pain Treatment Diagnosis: Cervical Dysfunction, Lumbar Dysfunction, Phlebolymphedema Date of Onset: 07/16/18 Date of Initial Evaluation: 07/16/18 Date patient was last seen: 11/19/18 Number of treatments: 42 Number of cancellations/No shows: 2 GOALS: In 3 weeks pt will improve cervical ROM to full without pain for improved function with ADL's. MET In 4 weeks pt will centralize the pain to the cervical spine only for improved function with ADL's. MET In 6 weeks pt will have no neck pain for improved function with ADL's. MET In 8 weeks pt will centralize pain from the L LE to the back only and have it reduced to <2/10 for improved function with ADL's. MET In 8 weeks pt will no longer have pitting in B dorsum's for improved venous and lymphatic return and decreased pain. In Progress PATIENT'S GOAL: Decrease neck pain. Status of Patient's Goals: 4/5 MET, 1/5 In Progress Patient Compliance: Fair Prognosis: Good Reasons for continuing therapy: Radha shows significant reductions in circumferential volume on the feet and LE following starting MLD and compression stocking use. Pt is very compliant with compression garments and shows improved skin mobility and foot and ankle function with decreased pain. LBP remains to occur on occasion but is quickly resolved if present with repeated standing ext and lying flat. Further PT to continue with improved LE mobility and decreased edema while maintaining lumbar gains. ROM: Cervical ROM: full in all motions without pain Lumbar ROM: full in all motions without pain. Circumferential Measures (R,L) in cm: EVAL: 1st digit: 8, 7.4, 2nd: 5.6, 4.8, Dorsum: 24.4, 23, Arch: 23.6, 22.8, Heel: 32.5, 30.8, Abv Mal: 31.4, 32.2, Figure-8: 51.5, 50.9, Calf: 33.7, 33, below knee: 37.3, 36. Circumferential Measures (R,L) in cm: EVAL: 1st digit: 7.5, 7.4, 2nd: 5.3, 4.8, Dorsum: 23.4, 22.4, Arch: 23, 22.4, Heel: 31.6, 30.8, Abv Mal: 22.1, 22.2, Figure-8: 51.6, 50.4, Calf: 33.7, 33, below knee: 34.8, 33.6. Palpation: pitting present on R dorsum with (+) Stemmer's sign on R dorsum, and B 1st digits. Observation: Hemosiderin staining present on B shins. If you have any questions, please feel free to contact me at [phone]. Thank you, Massiel Ariza, PT, DPT, CLT MTDD
[~2018-11-29 10:30] MED LIST changes: -GADOBENATE 529MG/1ML 15ML VIAL IVP ONE
--- NOTE | 2018-11-29 12:09 | PT PLAN OF CARE ---
Physician: Inessa Fagan MD Patient is being seen: 3x/Week Therapist: Massiel Ariza, PT, DPT, CLT Medical Diagnosis: Neck Pain Treatment Diagnosis: Cervical Dysfunction Date of Onset: 07/16/18 Date of Initial Evaluation: 07/16/18 Date patient was last seen: 11/29/18 Number of treatments: 46 Number of cancellations/No shows: 4 INTERVENTIONS: Manual Therapy/STM/MET Strengthening/condition Ice/Heat Range of Motion Spinal Stabilization Ultrasound Stretching Iontophoresis Neuromuscular Re-ed Electrical Stim Posture/Body mechanics Biofeedback Home Exercise Program Mech./Manual Traction Therapeutic Activities GOALS: In 3 weeks pt will improve cervical ROM to full without pain for improved function with ADL's. MET In 4 weeks pt will centralize the pain to the cervical spine only for improved function with ADL's. MET In 6 weeks pt will have no neck pain for improved function with ADL's. MET In 8 weeks pt will centralize pain from the L LE to the back only and have it reduced to <2/10 for improved function with ADL's. MET In 8 weeks pt will no longer have pitting in B dorsum's for improved venous and lymphatic return and decreased pain. MET PATIENT'S GOAL: Decrease neck pain. Status of Patient's Goals: 4/5 MET, 1/5 In Progress Patient Compliance: Fair Prognosis: Good Reasons for discharge from therapy: sImael is to discharge from physical therapy at this time secondary to completion of 5/5 functional goals. At the time of discharge pt has slight onset of back pain occasionally which is reduces with performance of HEP. Compliance with HEP is inconsistent, however when high pt has no pain in the back or legs. Pt is compliant at the time of discharge with B LE compression stocking use with decreased pain and edema in B LE and improved skin mobility and integrity. Upon discharge pt is to continue with ankle pumps and ROM to maintain muscle pumps for venous insufficiency as well as skin mobility. Pt showed high BP at the time of discharge at 148/74 which is increased from Monday at 123/72 but decreased from Monday at 172/62. PT notified PCP of this change and Ismael is to continue to follow up on medication management of BP with PCP. ROM: Cervical ROM: full in all motions without pain Lumbar ROM: full in all motions without pain. Circumferential Measures (R,L) in cm: EVAL: 1st digit: 8, 7.4, 2nd: 5.6, 4.8, Dorsum: 24.4, 23, Arch: 23.6, 22.8, Heel: 32.5, 30.8, Abv Mal: 31.4, 32.2, Figure-8: 51.5, 50.9, Calf: 33.7, 33, below knee: 37.3, 36. Circumferential Measures (R,L) in cm: 11/29: 1st digit: 7.5, 7.4, 2nd: 5.3, 4.8, Dorsum: 23.4, 22.4, Arch: 23, 22.4, Heel: 31.6, 30.8, Abv Mal: 22.1, 22.2, Figure-8: 51.6, 50.4, Calf: 33.7, 33, below knee: 34.8, 33.6. Palpation: pitting no longer present on B dorsum's, Stemmer's sign (-) dorsum B, L digits, (+) R digits Observation: Hemosiderin staining present on B shins. If you have any questions, please feel free to contact me at [phone]. Thank you, Massiel Ariza, PT, DPT, CLT MTDD
== END 2018-11-29 14:10 | disposition home or self-care (01) ==
LOC: PT 10:30
PROVIDERS: ATTEND Emergency Medicine
DX: M54.2 Cervicalgia (principal)